=== PATIENT | female | born 1990 | race Caucasian/White ===

== ENCOUNTER 2020-11-12 15:10 | Emergency (ER) | payer BC ==
[~2020-11-12] VITALS: Ht 167.6 cm; Wt 49.9 kg
[2020-11-12 15:42] VITALS: BP 118/55
--- NOTE | 2020-11-12 15:44 | NUR ---
PT AMBULATED TO BR WITH UPRIGHT STEADY GAIT. RETURN WITH NO INCIDENCE. NAD NOTED
--- NOTE | 2020-11-12 15:51 | NUR ---
PA AT BS
[2020-11-12] MEDS ORDERED: KETOROLAC 30 MG/1 ML ONE (16:29)
[2020-11-12] MEDS ORDERED: PROCHLORPERAZINE 5 MG/ML, 2ML ONE (16:29)
[2020-11-12] MEDS ORDERED: KETOROLAC 30 MG/1 ML IVPush ONE (16:30)
[2020-11-12] MEDS ORDERED: PROCHLORPERAZINE 5 MG/ML, 2ML IVPush ONE (16:30)
[2020-11-12] MEDS ORDERED: SODIUM CHLORIDE FLUSH 10ML SYR IVF ONE (16:30)
--- NOTE | 2020-11-12 17:04 | NUR ---
PT TO CT
--- NOTE | 2020-11-12 17:10 | NUR ---
PT BACK FROM CT. NAD NOTED.
--- NOTE | 2020-11-12 18:21 | NUR ---
Patient given discharge instructions and they have confirmed that they understand the instructions. Patient ambulatory with steady gait.
== END 2020-11-12 18:50 | disposition home or self-care (01) ==
LOC: ED 18:43
DX: S09.90XA Unspecified injury of head, initial encounter (principal); G43.001 Migraine without aura, not intractable, with status migrainosus; R42 Dizziness and giddiness; R11.0 Nausea; X58.XXXA Exposure to other specified factors, initial encounter; Y93.89 Activity, other specified; Y92.69 Other specified industrial and construction area as the place of occurrence of the external cause; Y99.0 Civilian activity done for income or pay
CPT/HCPCS: 70450; 96374; 96375; 99284; J0780; J1885